=== PATIENT | male | born 1950 | race Caucasian/White ===

== ENCOUNTER 2022-11-21 13:14 | Outpatient (CLI) | payer MEDICARE, SELFPAY | END 2022-11-21 13:15 | disposition home or self-care (01) | LOC: US 13:15 | PROVIDERS: PCP Family Medicine; Visit Provider Internal Medicine | DX: I25.10 Atherosclerotic heart disease of native coronary artery without angina pectoris (principal) | CPT/HCPCS: 93922 ==

== ENCOUNTER 2023-02-22 11:32 | Outpatient (CLI) | payer MEDICARE, SELFPAY | END 2023-02-22 11:33 | disposition home or self-care (01) | LOC: NFLDREF 02-25 20:00 | PROVIDERS: PCP Family Medicine; Referring Provider Family Medicine; Visit Provider Family Medicine | DX: E11.9 Type 2 diabetes mellitus without complications (principal); I10 Essential (primary) hypertension; F41.9 Anxiety disorder, unspecified | CPT/HCPCS: 83036 ==

== ENCOUNTER 2023-09-18 09:59 | Outpatient (CLI) | payer MEDICARE, SELFPAY | END 2023-09-18 10:00 | disposition home or self-care (01) | PROVIDERS: PCP Family Medicine; Visit Provider Family Medicine | DX: E78.5 Hyperlipidemia, unspecified (principal); E11.9 Type 2 diabetes mellitus without complications; C91.10 Chronic lymphocytic leukemia of B-cell type not having achieved remission | CPT/HCPCS: 80048; 80061 ==

== ENCOUNTER 2024-02-14 11:43 | Outpatient (CLI) | payer MEDICARE, SELFPAY | END 2024-02-14 11:44 | disposition home or self-care (01) | LOC: LKVREF 11:45 | PROVIDERS: PCP Family Medicine; Visit Provider Family Medicine | DX: I10 Essential (primary) hypertension (principal) | CPT/HCPCS: 80048 ==

== ENCOUNTER 2024-10-14 11:57 | Outpatient (CLI) | payer MEDICARE, SELFPAY | END 2024-10-14 11:58 | disposition home or self-care (01) | LOC: LKVREF 11:59 | PROVIDERS: PCP Family Medicine; Visit Provider Family Medicine | DX: E78.2 Mixed hyperlipidemia (principal) | CPT/HCPCS: 80061 ==

== ENCOUNTER 2025-02-04 07:45 | Day surgery (SDC) | payer MEDICARE, SELFPAY ==
[2025-02-04] VITALS (7 sets, daily range): BP systolic 115–154; BP diastolic 58–75; PULSE 50–71; RESP 14–16; TEMP 36.2; O2SAT 95–97; BMI 24.2
[2025-02-04] MEDS: LACTATED RINGERS 1000 ML 1,000 ML 100 ML IV (07:35)
--- NOTE | 2025-02-04 08:28 | W.PM.H&PU ---
History & Physical Update History & Physical Update H&P Reviewed and patient assessed: No changes noted
[2025-02-04] MEDS: SODIUM CHLORIDE 0.9 % (FLUSH) 10 ML SYRINGE IVF (08:35)
--- NOTE | 2025-02-04 08:51 | P.GSOP_ITS ---
Operative Note Date of procedure: 02/04/25 Pre-op diagnosis: 1. Symptomatic right inguinal hernia. 2. CLL. Post-op diagnosis: 1. Indirect right inguinal hernia. Type of Procedure: 1. Open right inguinal hernia repair with mesh. Indications: 74-year-old male on Plavix with CLL presented to clinic for evaluation of symptomatic right inguinal hernia. Patient noticed the right inguinal bulge a few weeks prior. 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 He has also been busy with gardening and doing a lot of heavy lifting prior to noticing the bulge. He complained of pain that was increased when he was active. At night patient was usually pain free. On clinical exam with the patient standing up I am able to easily visualize moderately sized right inguinal bulge. This is reducible. Given patient's clinical history and his physical exam, an open right inguinal hernia repair was recommended. The procedure was discussed in detail. The risks associated procedure including infection, bleeding, nerve pain, and hernia recurrence were all discussed with the patient, and he agreed to proceed. Procedure Description: After discussing the risks and benefits of the procedure, the patient signed informed consent.? The operative site was marked and the patient was brought to the operating room and placed on the operating table in supine position.? Care was taken to pad the patient's pressure points.?? The patient was then sedated by anesthesia.?? The operative site was then prepped and draped in the usual sterile fashion.? A time-out was then performed. Surgical site was prepped and draped in sterile fashion. Site of the incision was marked with a marking pen and local anesthetic was injected. An oblique incision was made just above and medial to the right inguinal ligament. Subcutaneous tissue was dissected to external obliques. Small incision was made through the external oblique aponeurosis with scalpel. However this was superior to the external oblique overlying the spermatic cord. This opening was left alone and a new incision was made in the external oblique overlying the spermatic cord. I then used Metzenbaum scissors to dissect under external obliques and extend my incision. Mosquito clamps were placed on the edges of external oblique exposing the inguinal floor. The right Ilioinguinal nerve was identified and was going through the plain of dissection. The nerve was divided proximally and distally and a 3 cm segment of it was excised. This was not sent to pathology. I then identified the spermatic cord and the hernia sac. I bluntly dissected subcutaneous tissues in order to place Largo drain around the cord structures. Cremasteric fibers were peeled off and dissected off the hernia sac and cord structures. This was an indirect hernia. The hernia sac was from the spermatic cord bluntly and with cautery. The indirect hernia sac was incised and examined from the inside. Small amount of clear fluid came out from the hernia sac. No intraabdominal organs were incarcerated in the hernia sac. A stitch using 3-0 Vicryl was placed near the base of the hernia sac through the sac and the hernia sac tied off. Hernia sac was then excised and not sent to pathology. The cut edge of the hernia sac was then oversewn with a locking 3-0 Vicryl suture. This was then pushed into preperitoneal space through the internal ring. Surgical field was examined for bleeding and hemostasis was achieved with cautery and Vicryl ties. A medium size Bard mesh plug was inserted through the internal ring and secured to the adjacent tissues with interrupted 0-0 Neurolon sutures. A Bard mesh onlay was also used for hernia repair. The mesh onlay was sutured in place with interrupted 0-0 Neurolon sutures to the conjoint tendon medially and shelving edge laterally, pubic tubercle inferiorly. Simple interrupted sutures were placed using 0-0 Neurolon at the base of internal inguinal ring making it only large enough to fit a tip of one finger through. Spermatic cord was placed back into scrotum. Judi drain was removed. External oblique aponeurosis was closed with a running 3-0 Vicryl. Additional local anesthetic was injected into subcutaneous tissues. Jonathan's fascia and subcutaneous tissue was re-approx imated with interrupted Vicryl stitches. Skin incision was closed with 4-0 Monocryl subcuticular stitch. Steri strips and sterile dressing were applied over incision. All counts were correct at the end of the case. Patient tolerated this procedure well and was transferred to PACU in stable condition. Findings: Indirect inguinal hernia. No intra-abdominal structures incarcerated in the hernia sac. Implants: Bard mesh plug and onlay Anesthesia: MAC and local Surgeon: Francisco J Rosas MD Estimated blood loss (mL): 5 Condition: stable Disposition: same day
[2025-02-04] MEDS: BUPIVACAINE 0.25% 30 ML INJECTION (09:18)
[2025-02-04] MEDS: LIDOCAINE 1%-EPI 1:100,000 20 ML INFILTRATI (09:18)
--- NOTE | 2025-02-04 10:36 | P.ANES_ITS ---
Anesthesia Charges Start Date/Time Anesthesia Start Date: 02/04/25 Anesthesia Start Time: 09:02 Stop Date/Time Anesthesia Stop Date: 02/04/25 Anesthesia Stop Time: 10:37 Summary Extremes of Age - Over 70 or under 1: BROWN STOCK WASHER Coding CPT Codes CPT Codes: ANESTH REPAIR OF HERNIA - 39330 ([id number]) P3 - PATIENT W/SEVERE SYS DISEASE, QX - BROWN STOCK WASHER SVC W/ MD MED DIRECTION, QK - DISTRIBUTION TECH 2-4 CNCRNT ANES PROC Additional Codes: Summary - Extremes of Age - Over 70 or under 1: BROWN STOCK WASHER ([id number])
--- NOTE | 2025-02-04 10:36 | W.ANESCHARGE ---
Anesthesia Charges Start Date/Time Anesthesia Start Date: 02/04/25 Anesthesia Start Time: 09:02 Stop Date/Time Anesthesia Stop Date: 02/04/25 Anesthesia Stop Time: 10:37 Summary Extremes of Age - Over 70 or under 1: FINISHER PLATE Coding CPT Codes CPT Codes: ANESTH REPAIR OF HERNIA - 64871 ([id number]) P3 - PATIENT W/SEVERE SYS DISEASE, QX - FINISHER PLATE SVC W/ MD MED DIRECTION, QK - PROCESS CONTROLS TECHNICIAN 2-4 CNCRNT ANES PROC Additional Codes: Summary - Extremes of Age - Over 70 or under 1: FINISHER PLATE ([id number])
--- NOTE | 2025-02-04 11:27 | P.ANES_ITS ---
Anesthesia Charges Start Date/Time Anesthesia Start Date: 02/04/25 Anesthesia Start Time: 09:02 Stop Date/Time Anesthesia Stop Date: 02/04/25 Anesthesia Stop Time: 10:37 Summary Extremes of Age - Over 70 or under 1: MDA Coding CPT Codes CPT Codes: ANESTH REPAIR OF HERNIA - 70026 ([id number]) QK - DIRECTOR OF RETENTION 2-4 CNCRNT ANES PROC, QX - METAL SPRAYER MACHINED PARTS SVC W/ MD MED DIRECTION, P3 - PATIENT W/SEVERE SYS DISEASE Additional Codes: Summary - Extremes of Age - Over 70 or under 1: MDA ([id number])
--- NOTE | 2025-02-04 12:33 | SUR.PHASEII ---
Discussed and demonstrated subcutaneous injections with patient. Injection sites and rotation of injection sites discussed. Discussed potential bleeding and signs and symptoms to watch for due to being on Plavix and giving Lovenox injections daily for 3 weeks. Discussed volume of medication in the syringe, and possibility of self injected syringe types possibly from the pharmacy. Encouraged to use a milk container or container like that for the used needles to prevent unplanned needle sticks and safety. Patient verbalized understanding and held syringe to see the volume
== END 2025-02-04 13:11 | disposition home or self-care (01) ==
PROVIDERS: PCP Family Medicine; Visit Provider Surgery
PROC: (CPT 49505; principal; 2025-02-04 09:15)
DX: K40.90 Unilateral inguinal hernia, without obstruction or gangrene, not specified as recurrent (principal); C91.10 Chronic lymphocytic leukemia of B-cell type not having achieved remission; E11.9 Type 2 diabetes mellitus without complications; I10 Essential (primary) hypertension; E78.5 Hyperlipidemia, unspecified
CPT/HCPCS: 49505; 00830; 82962; 99100; C1781; J0665; J0690; J1100; J2405; J2704; J3010; J7120